=== PATIENT | male | born 2000 | race Hispanic/Latino ===

== ENCOUNTER 2024-07-27 18:50 | Emergency (ER) | payer SELFPAY ==
[2024-07-27] MEDS ORDERED: LIDOCAINE 1% 20 ML MDV ONE (19:37)
[2024-07-27] MEDS ORDERED: TDAP (DIPHTH,PERTUSS(ACELL),TET VAC) 0.5 ML VIAL IMVAC ONE (20:01)
--- NOTE | 2024-07-27 20:19 | EDPHYS ---
Physician Documentation [facility] Name: Jesus Swanson Jr Age: 23 yrs Sex: Male : 2000 Arrival Date: 07/27/2024 Time: 18:50 Bed 13 Private MD: ED Physician Daryl Harris HPI: 07/27 19:41 This 23 yrs old Male presents to ER via Ambulatory with complaints of Finger rt Injury. 19:41 Patient presents to the ED with laceration to the left ring finger. Patient was cutting rt an avocado when he slipped cutting it. Denies active bleeding, other injuries, does not know when his last tetanus administration is denies other acute complaints at this time, symptoms are mild in severity, no other aggravating or alleviating factors.. Historical: - Allergies: 19:17 No Known Allergies; dd2 - PMHx: 19:17 None; dd2 - PSHx: 19:17 None; dd2 - Immunization history:: Adult Immunizations unknown, Last tetanus immunization: unknown. - Infectious Disease History:: Denies. - Social history:: Smoking status: Patient denies any tobacco usage or history of. - Family history:: not pertinent. ROS: 19:41 Constitutional: Negative for fever, chills, and weight loss, Cardiovascular: Negative rt for chest pain, palpitations, and edema, MS/Extremity: Negative for injury and deformity, Neuro: Negative for headache, weakness, numbness, tingling, and seizure, 19:41 Skin: Positive for laceration(s), Negative for cellulitis, Exam: 19:41 Constitutional: This is a well developed, well nourished patient who is awake, alert, rt and in no acute distress. Head/Face: Normocephalic, atraumatic. Neuro: Awake and alert, GCS 15, oriented to person, place, time, and situation. Cranial nerves II-XII grossly intact. Motor strength 5/5 in all extremities. Sensory grossly intact. Cerebellar exam normal. Normal gait. 19:41 Musculoskeletal/extremity: 3 cm laceration to the left ring finger, no active bleeding, no tendon involvement, full range of motion, good capillary refill, no foreign bodies identified. Vital Signs: 19:16 BP 133 / 73; Pulse 74; Resp 16; Temp 98.3; Pulse Ox 97% ; Weight 90.72 kg; Height 6 ft. dd2 2 in. ; Pain 4/10; 19:16 Body Mass Index 25.68 (90.72 kg, 187.96 cm) dd2 19:16 Pain Scale: Adult dd2 Laceration: 20:49 Wound Repair of 3cm ( 1.2in ) subcutaneous laceration to dorsal aspect of middle rt phalanx of left ring finger. Linear shaped.. Distal neuro/vascular/tendon intact. Anesthesia: Digital block administered with 2 mls of 1% lidocaine. Wound prep: Copious irrigation. Skin closed with 3 4-0 Prolene using simple sutures and sterile technique. Patient tolerated well. MDM: 19:26 Medical Screening Exam initiated rt 20:49 Differential diagnosis: Laceration. Data reviewed: vital signs, nurses notes. Test rt considered but Not performed: X-ray: Low suspicion for fracture, retained foreign body, x-rays are not indicated. Counseling: I had a detailed discussion with the patient and/or guardian regarding the historical points, exam findings, and any diagnostic results supporting the discharge/admit diagnosis, the need for outpatient follow up. 07/27 19:28 Order name: Dressing - Wound; Complete Time: 20:10 rt 07/27 19:28 Order name: Gloves, Sterile; Complete Time: 20:10 rt 07/27 19:28 Order name: Setup Suture Tray; Complete Time: 19:44 rt Administered Medications: 20:08 Drug: Boostrix Tdap IM 0.5 ml IM once; as a single dose Route: IM; Site: right deltoid; jb4 20:09 Drug: Lidocaine Infiltration (1 %) 5 ml 5 ml Infiltration once; to bedside {Note: jb4 administered by ER physician..} Volume: 5 ml; Route: Infiltration; Disposition Summary: 07/27/24 20:18 Discharge Ordered Notes: Location: Home rt Problem: new rt Symptoms: have improved rt Condition: Stable rt Diagnosis - Laceration to left fourth finger rt Followup: rt - With: Private Physician - When: 10 - 14 days - Reason: Discharge Instructions: - Discharge Summary Sheet rt - Laceration Care, Adult rt Forms: - Medication Reconciliation Form rt - Antibiotic Education rt - Prescription Opioid Use rt - Patient Portal Instructions rt - Leadership Thank You Letter rt Signatures: Ousmane Barr RN RN jb4 Daryl Harris MD MD rt ANGELO RODRIGUEZ, RN RN dd2
--- NOTE | 2024-07-27 20:19 | ER ---
Nurse's Notes [facility] Name: Jesus Swanson Jr Age: 23 yrs Sex: Male : 2000 Arrival Date: 07/27/2024 Time: 18:50 Bed 13 Private MD: Diagnosis: Laceration to left fourth finger Presentation: 07/27 19:16 Chief complaint: Patient states: WAS CUTTING AVOCADOS AND CUT FINGER. Coronavirus dd2 screen: At this time, the client does not indicate any symptoms associated with coronavirus-19. Ebola Screen: No symptoms or risks identified at this time. Initial Sepsis Screen: Does the patient meet any 2 criteria? No. Patient's initial sepsis screen is negative. Does the patient have a suspected source of infection? No. Patient's initial sepsis screen is negative. Risk Assessment: Do you want to hurt yourself or someone else? Patient reports no desire to harm self or others. Onset of symptoms was July 27, 2024. 19:16 Method Of Arrival: Ambulatory dd2 19:16 Acuity: RONNY 4 dd2 Triage Assessment: 19:17 General: Appears in no apparent distress. Behavior is calm, cooperative, appropriate dd2 for age. Pain: Complains of pain in dorsal aspect of proximal phalanx of left ring finger Pain currently is 4 out of 10 on a pain scale. Musculoskeletal: Circulation, motion, and sensation intact. Range of motion: intact in all extremities. Injury Description: Laceration sustained to dorsal aspect of proximal phalanx of left ring finger is clean, 0.5 to 2.5 cm long, was sustained less than 30 minutes ago. a small amount of bleeding noted at this time. Historical: - Allergies: 19:17 No Known Allergies; dd2 - PMHx: 19:17 None; dd2 - PSHx: 19:17 None; dd2 - Immunization history:: Adult Immunizations unknown, Last tetanus immunization: unknown. - Infectious Disease History:: Denies. - Social history:: Smoking status: Patient denies any tobacco usage or history of. - Family history:: not pertinent. Screenin:31 [facility] ED Fall Risk Assessment (Adult) History of falling in the last 3 months, jb4 including since admission No falls in past 3 months (0 pts) Confusion or Disorientation No (0 pts) Intoxicated or Sedated No (0 pts) Impaired Gait No (0 pts) Mobility Assist Device Used No (0 pt) Altered Elimination No (0 pt) Score/Fall Risk Level 0 - 2 = Low Risk Oriented to surroundings, Maintained a safe environment. Abuse screen: Denies threats or abuse. Nutritional screening: No deficits noted. Tuberculosis screening: No symptoms or risk factors identified. Assessment: 20:31 Reassessment: Patient appears in no apparent distress at this time. Patient and/or jb4 family updated on plan of care and expected duration. Pain level reassessed. Patient is alert, oriented x 3, equal unlabored respirations, skin warm/dry/pink. Vital Signs: 19:16 BP 133 / 73; Pulse 74; Resp 16; Temp 98.3; Pulse Ox 97% ; Weight 90.72 kg; Height 6 ft. dd2 2 in. ; Pain 4/10; 19:16 Body Mass Index 25.68 (90.72 kg, 187.96 cm) dd2 19:16 Pain Scale: Adult dd2 ED Course: 18:52 Patient arrived in ED. im 18:55 Daryl Harris MD is Attending Physician. rt 19:17 Triage completed. dd2 19:20 Arm band placed on right wrist. dd2 20:06 Ousmane Barr, RN is Primary Nurse. jb4 20:31 Patient has correct armband on for positive identification. Bed in low position. Call jb4 light in reach. Side rails up X 1. Provided Education on: discharge instructions.. 20:31 No provider procedures requiring assistance completed. Assist provider with laceration jb4 repair on dorsal aspect of proximal phalanx of left ring finger that was between 2.6 to 7.5 cm using sutures. Set up tray. Performed by Daryl Harris MD Patient tolerated well. Patient did not have IV access during this emergency room visit. Administered Medications: 20:08 Drug: Boostrix Tdap IM 0.5 ml IM once; as a single dose Route: IM; Site: right deltoid; jb4 20:09 Drug: Lidocaine Infiltration (1 %) 5 ml 5 ml Infiltration once; to bedside {Note: jb4 administered by ER physician..} Volume: 5 ml; Route: Infiltration; Medication: 20:31 VIS not applicable for this client. jb4 Outcome: 20:18 Discharge ordered by . rt 20:31 Discharged to home ambulatory, jb4 20:31 Condition: stable 20:31 Discharge instructions given to patient, Instructed on discharge instructions, follow up and referral plans. Demonstrated understanding of instructions, follow-up care, 20:34 Patient left the ED. jb4 Signatures: Ousmane Barr, CELESTE RN jb4 Daryl Harris MD MD rt Lorraine Boss DIANA, RN RN dd2
[2024-07-27 21:11] VITALS: BP 133/73; TEMP 98.3; O2SAT 97
== END 2024-07-27 20:34 | disposition home or self-care (01) ==
LOC: ER 18:50
DX: S61.215A Laceration without foreign body of left ring finger without damage to nail, initial encounter (principal)
CPT/HCPCS: 12002; 90715; 96372; 99284; J2003